=== PATIENT | female | born 1985 | race Caucasian/White ===

== ENCOUNTER → 2018-12-19 13:15 | Outpatient (CLI) | payer MEDICAID | END | disposition home or self-care (01) | LOC: D.LDO 13:15 | PROVIDERS: ATTEND Obstetrics & Gynecology | DX: O30.009 Twin pregnancy, unspecified number of placenta and unspecified number of amniotic sacs, unspecified trimester (principal); Z3A.00 Weeks of gestation of pregnancy not specified ==

== ENCOUNTER → 2018-12-25 12:40 | Outpatient (CLI) | payer MEDICAID | END | disposition home or self-care (01) | LOC: D.LDO 12:40 | PROVIDERS: ATTEND Obstetrics & Gynecology | DX: O30.93 Multiple gestation, unspecified, third trimester (principal); Z3A.31 31 weeks gestation of pregnancy ==

== ENCOUNTER → 2018-12-28 18:30 | Outpatient (CLI) | payer MEDICAID | END | disposition home or self-care (01) | LOC: D.LDO 18:30 | PROVIDERS: ATTEND Obstetrics & Gynecology | DX: O30.90 Multiple gestation, unspecified, unspecified trimester (principal) ==

== ENCOUNTER → 2019-01-03 12:36 | Outpatient (CLI) | payer MEDICAID | END | disposition home or self-care (01) | LOC: D.LDO 12:36 | PROVIDERS: ATTEND Obstetrics & Gynecology | DX: O30.90 Multiple gestation, unspecified, unspecified trimester (principal) ==

== ENCOUNTER → 2019-01-08 15:55 | Outpatient (CLI) | payer MEDICAID ==
[~2019-01-08 15:55] MED LIST: AMBIEN10 MG PO; CYCLOBENZAPRINE10 MG PO; HYDROCODON-ACE1 EA10 PO; MOTRIN600 MG PO; PRENATAL; PROTONIX40 MG PO; ZOFRAN ODT4 MG/UDTAB
[2019-01-26 09:47] VITALS: BMI 31.3
== END ==
LOC: D.LDO 15:55
PROVIDERS: ATTEND Obstetrics & Gynecology
DX: O30.93 Multiple gestation, unspecified, third trimester (principal); Z3A.33 33 weeks gestation of pregnancy

== ENCOUNTER → 2019-01-11 12:45 | Outpatient (CLI) | payer MEDICAID ==
[2019-01-26 09:47] VITALS: BMI 31.3
== END | disposition home or self-care (01) ==
LOC: D.LDO 12:45
PROVIDERS: ATTEND Obstetrics & Gynecology
DX: O30.90 Multiple gestation, unspecified, unspecified trimester (principal)

== ENCOUNTER → 2019-01-16 14:34 | Outpatient (CLI) | payer MEDICAID ==
[2019-01-26 09:47] VITALS: BMI 31.3
== END | disposition home or self-care (01) ==
LOC: D.LDO 14:34
PROVIDERS: ATTEND Obstetrics & Gynecology
DX: O30.93 Multiple gestation, unspecified, third trimester (principal); Z3A.34 34 weeks gestation of pregnancy

== ENCOUNTER → 2019-01-17 18:27 | Outpatient (CLI) | payer MEDICAID ==
[2019-01-26 09:47] VITALS: BMI 31.3
== END | disposition home or self-care (01) ==
LOC: D.LDO 18:27
PROVIDERS: ATTEND Student in an Organized Health Care Education/Training Program
DX: O30.93 Multiple gestation, unspecified, third trimester (principal); Z3A.34 34 weeks gestation of pregnancy

== ENCOUNTER → 2019-01-22 12:06 | Outpatient (CLI) | payer MEDICAID ==
[2019-01-26 09:47] VITALS: BMI 31.3
== END | disposition home or self-care (01) ==
LOC: D.LDO 12:06
PROVIDERS: ATTEND Obstetrics & Gynecology
DX: O30.93 Multiple gestation, unspecified, third trimester (principal); Z3A.35 35 weeks gestation of pregnancy

== ENCOUNTER 2019-01-25 11:35 | Outpatient (CLI) | payer MEDICAID ==
[2019-01-25] MEDS ORDERED: CYCLOBENZAPRINE10 MG PO (21:28)
[2019-01-25] MEDS ORDERED: AMBIEN10 MG PO (21:28)
[2019-01-25] MEDS ORDERED: PROTONIX40 MG PO (21:29)
[2019-01-25] MEDS ORDERED: ZOFRAN ODT4 MG/UDTAB (21:30)
[2019-01-25] MEDS ORDERED: PRENATAL (21:31)
[2019-01-26 09:47] VITALS: BMI 31.3
== END 2019-01-25 13:18 ==
LOC: D.LDO 11:35
PROVIDERS: ATTEND Obstetrics & Gynecology
DX: O30.90 Multiple gestation, unspecified, unspecified trimester (principal)

== ENCOUNTER → 2019-01-25 21:04 | Outpatient (CLI) | payer MEDICAID ==
[2019-01-26 09:47] VITALS: BMI 31.3
== END | disposition home or self-care (01) ==
LOC: D.LDO 21:04
PROVIDERS: ATTEND Obstetrics & Gynecology
DX: O47.9 False labor, unspecified (principal)

== ENCOUNTER 2019-01-26 08:50 | Inpatient (IN) | payer MEDICAID ==
[2019-01-26] VITALS (12 sets, daily range): BP systolic 97–118; BP diastolic 56–77; Ht 175.3 cm; Wt 96.4 kg
[~2019-01-26] VITALS: Ht 175.3 cm; Wt 96.4 kg
--- NOTE | ~2019-01-26 | DS ---
PATIENT:YULIANA QUIGLEY :87 MEDICAL RECORD: [id number] DISCHARGE SUMMARY ADMISSION DATE: 01/26/19 DISCHARGE DATE: 01/28/19 The patient was admitted on 01/26/2019. HISTORY: A 34-year-old , at 36 weeks and 1 day, admitted for twin gestation with contractions q.1-3 minute, admitted at that time for and tubal ligation. PAST MEDICAL HISTORY: Significant for anxiety and acid reflux. SURGICAL HISTORY: Significant for hernia in 2007, breast augmentation. ALLERGIES: The patient reported no known allergies. MEDICATIONS: Include Ambien, Flexeril, Protonix, and Zofran as well as vitamins. FAMILY HISTORY: The patient reported a family history significant for parents with hypertension. SOCIAL HISTORY: The patient reported being a former tobacco use. PHYSICAL EXAMINATION: VITAL SIGNS: On initial assessment, vital signs were afebrile and normotensive. LUNGS: Clear to auscultation. CARDIOVASCULAR: Regular rate and rhythm. PELVIC: Uterus was appropriately sized and nontender. EXTREMITIES: Lower extremities are free of Homans sign, erythema, or swelling. wellbeing was reassuring times 2 with a heart rate in the 150s, variable, moderate, noted to be having regular contractions. LABORATORY DATA: Admit hemoglobin was 12.3. ASSESSMENT AND PLAN: At that time; 1. Intrauterine at 36 weeks and 1 day. 2. Dichorionic diamniotic twin gestation. 3. Labor. 4. Anxiety. Plan at that time for and tubal ligation. Risks and benefits were explained. The patient voiced understanding and consent. Category 1 tracing times 2 was noted. Operative report is as dictated. The patient did well overnight on postop day #0, tolerating Dilaudid TOUR AGENT and Toradol for pain, IV fluids, clear liquid diet. Gonzales catheter in place and urine output was found to be adequate. Lower extremities are free of erythema, swelling and SCDs were on and functioning normally. On morning of postop day #1, the patient continued to do well. Vital signs are stable. The patient was afebrile and normotensive. Incision was clean, dry and intact. Hemoglobin was found to be stable. At that time, the patient was advanced to general diet and p.o. pain meds. Gonzales catheter was discontinued and ambulation begun. The patient continued to improve on postop day #1. On the morning of postop day #2, the patient continued to do well. Vital signs are stable. The patient was afebrile and DISCHARGE SUMMARY REPORT [id number] YULIANA QUIGLEY normotensive. Incision clean, dry and intact. The patient reported minimal lochia. Uterus was appropriately sized and appropriately tender. The patient was discharged home on postop day #2 with instructions to follow up the next week for a wound check. TRANSINT:[id number] Voice Confirmation ID: [id number] DOCUMENT ID: [id number] BONNY RUVALCABA MD CC: [id number] DICTATION DATE: 03/16/192115 BOX SEALING MACHINE OPERATOR: 03/17/19 111 DIS IN 01/28/19 [id number] [place] [address]
[~2019-01-26 08:50] MED LIST changes: -HYDROCODON-ACE1 EA10 PO; -MOTRIN600 MG PO
[2019-01-26 09:53] LABS: HEMATOCRIT 37.9 % (36.0-48.0); HEMOGLOBIN 12.3 g/dL (12-16); MCH 26.9 pg (26.0-34.0); MCHC 32.5 g/dL (31.0-37.0); MCV 82.8 fL (80.0-100.0); MEAN PLATELET VOLUME 10.6 fL (7.4-10.4); RBC 4.58 10x6/uL (4.00-5.40); RDW 13.3 % (11.5-14.5); WBC 9.5 10x3/uL (4.8-10.8)
--- NOTE | 2019-01-26 12:17 | NUR ---
RECEIVED PT FROM RECOVERY ROOM VIA BED. ALERT AND ORIENTED. IV NS 20 UNITS PITOCIN PLACED ON ALARIS PUMP AT 125 ML/HR. VS OBTAINED, U/2 FIRM MIDLINE, LTCS INCISION DRESSING CLEAN DRY AND INTACT. CASTELLON DRAINING CLEAR YELLOW URINE AND ATTACHED TO INNER RIGHT THIGH. UNABLE TO MOVE LE. DENIES PAIN. SCD'S PLACED ON PUMP AND WORKING BILATERALLY. ROBERT PENN[place], MOD ON PAD, CHANGED AND PLACE TWO CLEAN ANGELITA-PADS. POSITIONED FOR COMFORT IN LOW FOWLERS POSITION. INSTRUCTED ON INCENTIVE SPIROMETER WHICH WAS USED X 3 FOLLOW BY STRONG, NON PRODUCTIVE COUGH. WATER AND CLEAR LIQUID DIET AT BEDSIDE. VISITORS WAITING TO SEE PT AND INFANTS READY TO COME TO ROOM. SIDERAILS UP X 2, CALL LIGHT IN REACH.
--- NOTE | 2019-01-26 12:45 | NUR ---
U/2 FIRM MIDLINE, RUBRA SMALL TO MOD, CLEAN ANGLEITA-PAD X 1 TO REPLACE SOILED ANGELITA-PAD. INFANT, VISITORS IN ROOM. UNABLE TO MOVE LE, DENIES PAIN. TO CALL IF ANYTHING IS NEEDED.
--- NOTE | 2019-01-26 13:00 | NUR ---
SITTING UP IN BED HOLDING . VISITORS IN ROOM. U/2 FIRM RUBRA SMALL. NO REQUESTS, NO PAIN, STILL UNABLE TO MOVE LE. CASTELLON DRAINING ADEQUATE CLEAR YELLOW URINE, IV PATENT. SIDERAILS X 2 REMAIN UP. CALL LIGHT IN REACH.
--- NOTE | 2019-01-26 13:15 | NUR ---
U/2 FIRM MIDLINE, RUBRA SMALL TO MOD, CLEAN PERIPADS X 2 PLACED. DENIES PAIN, MOVING LE SLIGHTLY. INFANT IN ARMS AND VISITORS IN ROOM. TO CALL IF ANYTHING IS NEEDED.
--- NOTE | 2019-01-26 13:30 | NUR ---
U/2 FIRM RUBRA SMALL TO MOD. MOVING LE BENDING AT KNEES, SAYS SHE IS STARTING TO FEEL PULLING PAIN. WILL START MEDICAL EDUCATION SPECIALIST, REPOSITION.
--- NOTE | 2019-01-26 13:45 | NUR ---
DILAUDID CERAMIC COATER INITIATED. INSTRUCTED PATIENT ON USE AND THAT SHE IS ONLY ONE TO PUSH CERAMIC COATER CONTROLLER. VERBALIZED UNDERSTANDING. 6/10 INCISIONAL PULLING. INCENTIVE SPIROMETER USED X 3 FOLLOWED BY WEAK COUGH "IT HURTS THIS TIME". ENCOURAGED TO SPLINT ABDOMEN. ICE PACK WAS PLACED UPON RETURNING FROM RR OVER INCISIONAL SITE (OVER GOWN) ICE PACK REMAINS IN PLACE. CLEAN CHUX AND PADS ON, POSITIONED TO RIGHT SIDE WITH PILLOWS. INFANTS IN ROOM. FOB PRESENT. SIDE RAILS UP X 2, CALL LIGHT IN REACH.
--- NOTE | 2019-01-26 14:50 | NUR ---
STILL FEELING PAIN. 09/17. TORADOL 30 MG GIVEN IVP FOR RELIEF. ENCOURAGED TO TRY TO NAP AT THIS TIME. INFANTS IN NURSERY, FOB IN ROOM, VISITORS GONE. I&0, VS COMPLETED. SIDE RAILS UP X 2, CALL LIGHT PLACED IN REACH.
--- NOTE | 2019-01-26 16:10 | NUR ---
SITTING UP BED . HAS NOT RESTED SAYS HER PAIN IS 5/10 STINGING, SAYS SHE HAS BEEN PUSHING DENTIST PRIVATE PRACTICE CONTROLLER, CHECKED VOLUME INFUSED WHICH IS 0. AT I&0 CHECK IT WAS 1 AND PUMP WAS CLEARED. CHECKED ALL CONNECTIONS, RESET PUMP, 0.4 MG BOLUS GIVEN AT THIS TIME AFTER CONFIRMATION OF ORDERS WITH Mary GONZALES RN AND CONFIRMATION OF BOLUS DOSE GIVEN. WILL STAY AT BEDSIDE TO ENSURE DENTIST PRIVATE PRACTICE CONTROLLER WORKING SECOND TIME. SIDE RAILS UP X 2, CALL LIGHT IN REACH, FRESH ICE PACK GIVEN. REMINDED NOT TO FALL ASLEEP WITH IN ARMS.
--- NOTE | 2019-01-26 16:20 | NUR ---
VALET CASHIER CONTROLLER LIGHT CAME ON, PT PUSHED VALET CASHIER CONTROLLER. WILL CONTINUE TO MONITOR PAIN MANAGEMENT. NEXT BOLUS CAN BE GIVEN AT 1910. U/2 FIRM MIDLINE, RUBRA SMALL, CLEAN ANGELITA-PAD PLACED. INCENTIVE SPIROMETER USED X 3 WITH NON PRODUCTIVE COUGH. TO CALL IF ANYTHING IS NEEDED, CLEAR LIQUID DIET AT BEDSIDE. FRESH ICE WATER GIVEN.
--- NOTE | 2019-01-26 16:51 | NUR ---
DRINKING ICE TEA AND EATING JELLO, "THIS TASTES SO GOOD". SAYS SHE IS STILL HURTING BUT PUSHING PRISON GUARD CONTROLLER WHEN LIGHT GOES GREEN. EXPLAINED TO PT SHE SHOULD GET SOME RELIEF ALTHOUGH PAIN MAY NOT GO AWAY 100%. VERBALIZED UNDERSTANDING. WILL REASSESS AT 1700. SIDE RAILS UP X 2, CALL LIGHT IN REACH. NO ACUTE DISTRESS NOTED.
--- NOTE | 2019-01-26 17:24 | NUR ---
SITTING UP IN BED HOLDING . SAYS SHE IS FEELING A LOT BETTER NOW AND PUSHING SENIOR REGULATORY AFFAIRS SPECIALIST CONTROLLER REGULARLY. PAIN IS NO -05/20. VISITORS IN ROOM. NO REQUESTS. SIDE RAILS UP X 2, CALL LIGHT IN REACH. TO CALL IF ANYTHING IS NEEDED.
--- NOTE | 2019-01-26 17:39 | NUR ---
PT DESIRED TO USE HER OWN FLONASE WHICH SHE HAS AT BEDSIDE. USES NEEDED FOR ALLERGIES. DR RUVALCABA CONTACTED AND ORDERS RECEIVED THAT SHE MAY USE HER OWN MEDICATION.
[2019-01-26 18:27] LABS: BASOPHILS 0.2 % (0-2); EOSINOPHILS 0.5 % (0-7); HEMATOCRIT 32.9 % (36.0-48.0); HEMOGLOBIN 10.5 g/dL (12-16); IMMATURE GRANULOCYTES 0.9 % (0-5); LYMPHOCYTES 10.6 % (15-50); MCH 26.3 pg (26.0-34.0); MCHC 31.9 g/dL (31.0-37.0); MCV 82.3 fL (80.0-100.0); MEAN PLATELET VOLUME 10.3 fL (7.4-10.4); NEUTROPHILS 79.8 % (40-80); PLATELET COUNT 160 10x3/uL (130-400); RDW 12.9 % (11.5-14.5)
[2019-01-26 18:34] LABS: WBC 13.3 10x3/uL (4.8-10.8)
--- NOTE | 2019-01-26 18:38 | NUR ---
INFANTS TO NURSERY PER Mary GONZALES RN NURSERY REQUESTS. DR RUVALCABA IN ROOM TALKING TO PATIENT. PT DESIRES TO EAT. NEW ORDERS RECEIVED. CBC RESULTS GIVEN TO .
--- NOTE | 2019-01-26 19:00 | NUR ---
PT. AWAKE AND ORIENTED. SKIN WARM AND DRY. BREATH SOUNDS CLEAR AND BOWEL SOUNDS ACTIVE. SCDS ON AND FUNCTIONAL. IV OF NS WITH 20 UNITS PITOCIN ADDED INFUSING IN LT HAND AT 125CC/HR. DILAUDID SHEEP AND WHEAT FARMER IN USE. PT. DEMONSTRATED USE OF INCENTIVE SPIROMETER UP TO 2500 X3. CASTELLON CATH. BAG EMPTIED FOR THE 4 HOUR I &O. PT. CHEERFUL AND RELATING THAT SHE HAD A "GREAT" EXPERIENCE. ENCOURAGED PT. TO COUGH AND DEEP BREATH AND PT. STATED UNDERSTANDING. INFORMED PT. THAT SHE MOVED TO MOVE FROM SIDE TO SIDE. PT. STATES THAT SHE WAS AT A TILT X1 AND IT WAS NOT COMFORTABLE. ENCOURAGED PT. TO CHANGE TO LT SIDE AND TURN ALL THE WAY OVER ON SIDE AND NOT JUST AT TILT. PT. ABLE TO TURN WITHOUT ASSISTANCE AND SUPPORTED WITH PILLOWS. ANGELITA PAD CHANGED WITH LOCHIA NOTED SCANT. ICE CAP REFILLED AND APPLIED TO LOWER ABD. OVER ABD. DRESSING. VISITORS AT BEDSIDE.
--- NOTE | 2019-01-26 19:45 | NUR ---
INFANTS IN ROOM TO VISIT. VISITORS AT BEDSIDE.
--- NOTE | 2019-01-26 20:20 | NUR ---
PT. LYING ON BACK HOLDING . STATES THAT SHE WAS UNCOMFORTABLE ON HER SIDE. EXPLAINED TO PT. REASON FOR POSITION CHANGES AND ASKED PT. TO MOVE FROM SIDE TO SIDE AND STAY LONG SHE CAN TOLERATE BUT NOT TO STAY ON HER BACK ALL THE TIME. PT. AGREEABLE AND STATES UNDERSTANDING. FAMILY AT BEDSIDE.
--- NOTE | 2019-01-26 21:09 | NUR ---
PERICARE DONE AND PADS CHANGED. SMALL AMT RUBRA LOCHIA NOTED, NO CLOTS PRESENT. NEW BAG NS WITH 20 UNITS PIT HUNG TO CONTINUE TO INFUSE PER ORDER. SCD'S ON BLE. PAIN 2-3/10, PROGRAM SCHEDULER INFUSING, REPORTS THAT IT IS CONTROLLING PAIN WELL. DENIES ADDITIONAL NEEDS. BED IN LOW POSITION WITH UPPER SIDE RAILS RAISED X2. CALL LIGHT, PHONE, AND PROGRAM SCHEDULER BUTTON WITHIN REACH.
--- NOTE | 2019-01-26 21:26 | NUR ---
INFANTS IN ROOM. RATES PAIN A 3 OF 10 ON PAIN SCALE. TORADOL GIVEN ORDERED. PT. HOLDING ONE PRIOR TO ATTEMPTING TO BREAST FEED. IV CONTINUES AT 125CC/HR. SCDS ON AND FUNCTIONAL. CASTELLON PATENT AND DRAINING. AWAKE AND ORIENTED. SKIN WARM AND DRY.
--- NOTE | 2019-01-26 21:43 | NUR ---
PAIN 3-4/10 INCISIONAL BURNING AND STINGING. SORT WORKER BEEPING NEAR END. SYRINGE CHANGED. PT REPORTS THAT PAIN LEVEL IS ACCEPTABLE. IN HIGH FOWLERS POSITION HOLDING A AT THIS TIME. DENIES ADDITIONAL NEEDS. SIGNIFICANT OTHER RESTING ON COUCH AT BEDSIDE. BED IN LOW POSITION WITH UPPER SIDE RAILS RAISED X2. CALL LIGHT AND PHONE WITHIN REACH. SORT WORKER BUTTON WITHIN REACH.
--- NOTE | 2019-01-26 22:45 | NUR ---
LYING ON BACK WITH EYES CLOSED. RESPIRATIONS UNLABORED. FOB ASLEEP ON SOFA. BOTH INFANTS IN SAME OPEN CRIB SWADDLED AND WITH HATS. PT. SCDS ON AND FUNCTIONAL. IV OF NS WITH PITOCIN INFUSING AT 125CC/HR. LIGHTS IN ROOM DIMMED WHEN THIS NURSE ENTERED.
--- NOTE | 2019-01-26 23:19 | NUR ---
LYING ON RT. SIDE AND SUPPORTED WITH PILLOW. LYING IN BED WITH PT. OTHER LYING WITH FOB ON SOFA. PT. AWAKE BUT DROWSY. LOCHIA RUBRA SCANT. ABD. DRESSING DRY AND INTACT. ICE CAP REFILLED AND PLACED AGAINST ABD. DRESSING. VITAL SIGNS OBTAINED. SCDS ON AND FUNCTIONAL. SIDE RAILS UP X2 AND CALL LIGHT WITHIN REACH OF PT. GROUNDWATER MONITORING TECHNICIAN BUTTON WITHIN REACH OF PT. PT. STATES SHE IS COMFORTABLE AT THIS TIME. ICE WATER PROVIDED.
--- NOTE | 2019-01-27 01:05 | NUR ---
PT. CALLED AND THIS NURSE INTO ROOM. PT. STATES THAT SHE CAN NOT SLEEP AND WOULD LIKE A SLEEP AID. ASKED PT. IF SHE PLANNED TO BREASTFEED. STATES NOT ANYMORE TONIGHT. PT. REPORTS TAKING AMBIEN IN HOME FOR SLEEP. INFORMED WOULD NEED TO CALL MD FOR ORDER. REPORTS THAT SHE HAS BEEN PUSHING DILAUDID GARDEN EQUIPMENT MECHANIC FREQ. FOR SLEEP BUT IT HASN'T BEEN WORKING.
--- NOTE | 2019-01-27 01:14 | NUR ---
DR. RUVALCABA PAGED TO DISCUSS PT REQUEST FOR SLEEP AID.
--- NOTE | 2019-01-27 01:17 | NUR ---
CALLBACK TO UNIT REC'D FROM DR. RUVALCABA, REPORTED TO PT REQUEST FOR SLEEP AID. ORDERS REC'D.
--- NOTE | 2019-01-27 01:31 | NUR ---
10 MG PO AMBIEN GIVEN PER ORDER AND PT REQUEST. EDUCATED ON MED AND FALL PRECAUTIONS, VERBALIZES UNDERSTANDING AND DENIES QUESTIONS. Pilar CRAWFORD RN NOTIFIED OF MED BEING GIVEN. INFANTS IN NBN AT THIS TIME. BED IN LOW POSITION WITH SR UP X2. CALL LIGHT, BOOMBOAT OPERATOR BUTTON, AND PHONE WITHIN REACH. SIGNIFICANT OTHER RESTING ON COUCH.
--- NOTE | 2019-01-27 03:02 | NUR ---
RESTING QUIETLY WITH EYES CLOSED IN SEMI-FOWLERS POSITION. INFANTS REMAIN IN NBN. RESP REGULAR AND UNLABORED, NO S/S OF DISTRESS NOTED. SIGNIFICANT OTHER RESTING ON COUCH AT BEDSIDE. BED IN LOW POSITION WITH SRUPX2. CALL LIGHT, PRINTING WORKER SUPERVISOR BUTTON, AND PHONE WITHIN REACH.
--- NOTE | 2019-01-27 03:45 | NUR ---
INFANTS TAKEN TO PT BY Darrin KIMBROUGH RN FROM [facility].
[2019-01-27 04:02] VITALS: BP 115/77
--- NOTE | 2019-01-27 04:02 | NUR ---
PT. AWAKE AT PRESENT AND ALSO FOB . ANGELITA PAD CHECKED PER REQUEST OF PT. WITH MINIMAL LOCHIA NOTED. RATES PAIN A 3 OF 10 ON PAIN SCALE. CASTELLON CATH. TUBING MOVED AND 500CC FLOWED INTO METER. PT. STATES SHE CAN FEEL SOME RELIEF FROM BLADDER FULLNESS. ICE CAP REFILLED TO PLACE OVER ABD. DRESSING. PT. REQUESTED SCDS REMOVED AT THIS TIME. STATES "IT MAKES ME TENSE WHEN THEY INFLATE."SCDS REMOVED. ICE WATER PROVIDED. PT. PREPARING TO BOTTLE FEED ONE INFANT AND FOB WILL FEED THE SECOND INFANT. VITAL SIGNS OBTAINED.
--- NOTE | 2019-01-27 04:30 | NUR ---
ASSISTED PT. AND FOB FEEDING INFANTS. BOTH ARE VERY RECEPTIVE AND APPRECIATIVE REGARDING ANY HELP OR SUGGESTIONS.
--- NOTE | 2019-01-27 05:45 | NUR ---
PT. ASLEEP BUT AWAKENED TO THIS NURSE IN ROOM. POC DISCUSSED WITH PT.. IV SALINE LOCKED. HVAC SPECIALIST COMPLETED AND OFF. NORCO GIVEN ORDERED FOR PAIN SCORE OF A 3 OF 10. PT. BACK TO SLEEP.
[2019-01-27 06:29] LABS: BASOPHILS 0.2 % (0-2); EOSINOPHILS 1.4 % (0-7); HEMOGLOBIN 10.5 g/dL (12-16); LYMPHOCYTES 10.7 % (15-50); MCH 26.3 pg (26.0-34.0); MCHC 31.8 g/dL (31.0-37.0); MCV 82.5 fL (80.0-100.0); MEAN PLATELET VOLUME 9.9 fL (7.4-10.4); NEUTROPHILS 78.7 % (40-80); PLATELET COUNT 149 10x3/uL (130-400); RDW 13.1 % (11.5-14.5); WBC 11.1 10x3/uL (4.8-10.8)
--- NOTE | 2019-01-27 08:00 | NUR ---
ASSUMED CARE OF THIS PT SITTING UP IN BED. VISITOR X 1 HOLDING . SECOND IN NURSERY. CASTELLON CATHETER DC'D WITHOUT DIFFICULY. DISCUSSED POC TO INCLUDE VOIDING, SHOWER, AMBULATION THIS AM. VERBALIZED UNDERSTANDING. DESIRES TO TRY TO GET SOME SLEEP NOW. SHIFT ASSESSMENT COMPLETED. FRESH WATER GIVEN, REGULAR DIET EATEN. NO REQUESTS. BED IN LOW POSITION, SIDE RAILS UP X 2, CALL LIGHT IN REACH. TO CALL IF ANYTHING IS NEEDED.
[2019-01-27 08:09] VITALS: BP 102/72
--- NOTE | 2019-01-27 09:39 | NUR ---
UP TO BATHROOM TO VOID. VOIDED 800 ML URINE WITH LOCHIA IN URINE. WANTED TO TAKE SHOWER. COMPLETE LINEN CHANGE DONE. COMPLETED BOTH AT THIS TIME. CURRENT 10 PRESSURE. DESIRES TO AMBULATE. WILL GIVE PO MEDS IF DUE.
--- NOTE | 2019-01-27 09:54 | NUR ---
NORCO 10 MG GIVEN PO FOR RELIEF OF 4/10 INCISIONAL PAIN PRESSURE/CRAMPING. AMBULATING IN [place]. VISITOR IN ROOM WITH .
--- NOTE | 2019-01-27 11:03 | NUR ---
SITTING UP IN BED TALKING TO VISITORS. SAYS HER PAIN IS BETTER 2/10 INCISIONAL ACHING. DENIES NEEDING ANYTHING. TO CALL IF ANYTHING IS NEEDED.
--- NOTE | 2019-01-27 12:19 | NUR ---
PT CALLS OUT EXPEDITION SUPERVISOR LIGHT FOR PAIN MED AND TO NOTIFY RN THAT SHE VOIDED. THIS RN TO ROOM. PT RATING PAIN 5/10 AT THIS TIME, STATES IT IS "ABOUT A 2 IF I'M STILL THOUGH." PT STATES PAIN WITH AMBULATION IS "ABOUT A 5." PT ADMIN PRN MOTRIN ORDERED, SEE EMAR FOR DOC. GREATER THAN 1000ML CLEAR YELLOW URINE EMPTIED FROM URINE CONTAINER IN BR. PT STATES "IT OVERFLOWED" SHE WAS VOIDING. PT INSTRUCTED ON EMPTYING BLADDER FREQUENTLY TO DECREASE LOCHIA AND CRAMPING. UNDERSTANDING VERBALIZED. SRUx2, CL IN REACH. WILL CONT TO MONITOR. PT VISITING WITH FAMILY AT THIS TIME.
[2019-01-27 13:30] VITALS: BP 109/69
--- NOTE | 2019-01-27 13:30 | NUR ---
SITTING UP IN BED TALKING TO VISITORS X 2. INFANTS IN ROOM. JUST RETURNED FROM BATHROOM. VOIDING WITHOUT DIFFICULY. 4/10 ABD CRAMPING. U/1 FIRM MIDLINE. ASKED ABOUT SOMETHING FOR SLEEP. INSTRUCTED SHE HAS AMBIEN ORDERED NEEDED FOR BEDTIME. VERBALIZED UNDERSTANDING. INCENTIVE SPIROMETER USED X 3 WITH GOOD NON-PRODUCTIVE COUGH. DENIES NEEDING ANYTHING ELSE AT THIS TIME. TO USE INCENTIVE SPIROMETER HOURLY, UP AD MEHUL. SIDE RAILS UP X 2, CALL LIGHT IN REACH.
--- NOTE | 2019-01-27 15:34 | NUR ---
AMBULATING IN [place]. ASKED HOW TO GET RID OF GAS. DISCUSSED RELIEF OPTIONS. ALSO REQUESTED PAIN MEDICATION FOR 6/10 "PULLING" PAIN. NORCO 10 MG GIVEN PO FOR RELIEF. ADITI SMALL, VOIDED 800 ML URINE. RETURNED TO ROOM. NO ADDITONAL REQUEST. VISITOR AND INFANTS X 2 IN ROOM.
--- NOTE | 2019-01-27 16:52 | NUR ---
MYLICON 80 MG GIVEN PO FOR RELIEF OF GAS. SITTING UP IN BED BOTTLEFEEDING INFANT. REGULAR DIET AT BEDSIDE. NO REQUESTS. SIDE RAILS UP X2, CALL LIGHT IN REACH. VISITOR X 1 IN ROOM HOLDING SECOND INFANT.
[2019-01-27 16:57] VITALS: BP 107/69
--- NOTE | 2019-01-27 17:50 | NUR ---
SITTING UP IN BED HOLDING . ASKED ABOUT REMOVAL OF SALINE LOCK. TAPE IS COMING LOSE AND SCANT AMOUNT OF BLOOD NOTED AT SITE. SALINE LOCK DC'D WITH TIP INTACT. AWARE THAT IS MAY HAVE TO BE RESTARTED IF NEEDED. VERBALIZED UNDERSTANDING. SAYS HER GAS PAIN IS BETTER. INCISIONAL PAIN/CRAMPING 07/18. ASKED FOR JELLO. FRESH WATER GIVEN. SIDE RAILS UP X 2, CALL LIGHT IN REACH. UP AD MEHUL TO AMBULATE AND TO BATHROOM.
[2019-01-27 20:24] VITALS: BP 137/84
--- NOTE | 2019-01-27 20:24 | NUR ---
PT REC'D UP IN ROOM AT THIS TIME. STATES PAIN IS A 6. LUNGS CLEAR. BS+. PT STATES THAT SHE IS NOT PASSING GAS VERY WELL. TAISHA INTACT. NO S/S OF INFECTION NOTED. FUNDUS FIRM WITH SMALL AMOUNT OF LOCHIA NOTED. NO ACUTE DISTRESS NOTED. Fabián FERGUSON RN
--- NOTE | 2019-01-27 20:33 | NUR ---
PT MEDICATED WITH MOTRIN AND NORCO FOR PAIN LEVEL OF 6. WILL CONTINUE TO MONITOR. Fabián FERGUSON RN
--- NOTE | 2019-01-27 21:06 | NUR ---
SIMETHICONE GIVEN FOR GAS. Fabián FERGUSON, RN
--- NOTE | 2019-01-28 00:42 | NUR ---
REPORT TO Judy HERNÁNDEZ RN
--- NOTE | 2019-01-28 03:05 | NUR ---
SLEEPING IN BED WITH SIGNIFICANT OTHER. RESPIRATIONS EVEN AND UNLABORED.
--- NOTE | 2019-01-28 04:00 | NUR ---
MOVED TO [facility]. ASSISTED WITH BELONGINGS. PATIENT DENIES NEEDS AT THIS TIME.
--- NOTE | 2019-01-28 04:20 | NUR ---
PATIENT COMPLAINING OF PAIN 08/17. MOTRIN AND NORCO GIVEN PER JUN.
--- NOTE | 2019-01-28 04:30 | NUR ---
PATIENT ASKED IF THERE WAS ANY MEDICATION LEFT IN OTHER ROOM. EXPLAINED THAT THE ROOM HAS NOT BEEN CLEANED YET NURSE CAN CHECK. PATIENT STATED HER BOYFRIEND BROUGHT HER A FEW XANAX FROM HER PRESCRIPTION AT HOME AND THEY WERE IN A PAPERTOWEL BY THE SINK. NURSE SEARCHED ROOM 1276 2 PAPER TOWELS FOUND BY THE SINK WITH NOTHING IN THEM. REPORTED TO PATIENT PILLS WERE NOT FOUND. PATIENT STATED BOYFRIEND MUST HAVE THEM.
--- NOTE | 2019-01-28 05:55 | NUR ---
BABY B IN MOM'S ARMS SLEEPING. MOM STATED SH ONLY ATE 20MLS. BABY A IN DADS ARMS AWAKE AND ALERT. MOM REQUESTED MORE ICE IN HER WATER. ICE WATER GIVEN. DENIES FURTHER NEEDS.
--- NOTE | 2019-01-28 07:00 | NUR ---
DR RUVALCABA VISITS WITH PT.
--- NOTE | 2019-01-28 08:30 | NUR ---
Pt sitting up in bed holding . Pt AAOx3 with complaint of pain 5/10 when standing. [place] given at this time. Pt with no other complaints at this time. Pt vital signs stable at this time.
--- NOTE | 2019-01-28 09:30 | NUR ---
PT SITTING UP IN BED. STATES PAIN MED RELIEVING PAIN. DENIES NEEDS OR C/O
--- NOTE | 2019-01-28 09:54 | NUR ---
Tena Castillo 01/[birth year] S: Patient states she hasn't breastfeed infants while in the hospital yet due to pain with her incision. She isn't able to find a comfortable position. States she plans on when she is home and will pump. She has a double electric medela pump and will pump when she gets home. Patient asked if I can show her how to hold infants for feedings. Verbally agrees to work on pumping at home and latching . O: Patient standing up in room changing . FOB just walked in room with infants car seats. Asked what questions about do you have? How can I help with ? Explained normal feeding patterns for a breastfed , breastmilk composition, supply and demand, benefits of skin to skin, positions, and how to verify is latched correctly. Both were placed in patient arms and showed how to hold for . Plan created for pumping/ attempting to latch infant when she is home. [facility] will follow up this afternoon and during the week. Asked if any questions about ? Please let nursery staff know if any questions or concerns. does take time, practice, and patience. A: Patient hasn't breastfeed during hospital visit due to pain from . Plans on pumping/latching infant when home. P: Please address all question or concerns about feeding infants to nursery staff. Catrina Busby, JOSE
[2019-01-28 09:59] VITALS: BP 111/72
--- NOTE | 2019-01-28 10:45 | NUR ---
PT AMBULATORY IN HALLS AT THIS TIME. DENIES C/O OR NEEDS.
[2019-01-28] MEDS ORDERED: MOTRIN600 MG PO (11:36)
[2019-01-28] MEDS ORDERED: HYDROCODON-ACE1 EA10 PO (11:36)
--- NOTE | 2019-01-28 12:35 | NUR ---
DISCHARGE INSTRUCTIONS GIVEN TO PT. PT VERBALIZES UNDERSTANDING OF ALL INSTRUCTIONS. COPIES GIVEN TO PT. PT GIVEN RX FOR NORCO AND MOTRIN. PT AWAITS 'S DISCHARGE.
--- NOTE | 2019-01-28 13:30 | NUR ---
PT AMBULATORY IN ROOM. PREPARING FOR DISCHARGE. DENIES NEEDS OR C/O.
--- NOTE | 2019-01-28 14:53 | NUR ---
Pt discharged home at this time via wheelchair per aux. staff with infants accompanied by spouse. Pt in stable condition at this time.
[2019-01-29 07:13] LABS: RAPID PLASMA REAGIN Non Reactive (Non Reactive)
--- NOTE | 2019-02-04 14:22 | OP ---
PATIENT NAME: YULIANA QUIGLEY MEDICAL RECORD: [id number] :87 LOCATION:[facility]1223 ADMISSION DATE:01/26/19 SURGEON: NASIM BARRY MD DATE OF OPERATION: 01/26/2019 PREOPERATIVE DIAGNOSES: 1. Twin gestation at 36 weeks. 2. Labor. POSTOPERATIVE DIAGNOSES: 1. Twin gestation at 36 weeks. 2. Labor. PROCEDURE: Primary low transverse section and a bilateral distal salpingectomy. SURGEON: Nasim Barry MD ESTIMATED BLOOD LOSS: 1000 cc. ANESTHESIA: Regional via spinal. INTRAVENOUS FLUIDS: Per anesthesia records. SPECIMENS: Included placenta times 2 and cord for gases times 2 as well as bilateral tubal segments. COMPLICATIONS: None apparent. FINDINGS: 1. Vertex-vertex, twin gestation. 2. Placenta delivered manually is intact times 2, 3-vessel cord times 2. 3. Normal adnexa bilaterally. PROCEDURE IN DETAIL: The patient was taken to the operating room where regional anesthesia was achieved without difficulty. The patient was then prepped and draped in normal sterile fashion in the dorsal supine position. SCDs were on and functioning normally and a Gonzales catheter had been placed and was draining freely. Following prepping, a Pfannenstiel skin incision was made, extended downward to the underlying subcutaneous fat to the level of the fascia. The fascia was then excised in the midline and extended bilaterally using the Garcia scissors. The superior and inferior aspect of the fascial incision were grasped with Alejandro clamps times 2, tented upward, and sharply dissected from the underlying rectus muscle using the Garcia scissors and the Bovie cautery. The rectus muscles were then bluntly in the midline and the peritoneum identified and entered sharply at the superior aspect of the incision using the Metzenbaum scissors. Peritoneal incision was then extended bilaterally and inferiorly using the Metzenbaum scissors. A bladder blade was placed into the pelvis. A bladder flap was created by excising the anterior leaf of the broad ligament across the lower uterine segment. This was further developed digitally and the bladder blade was then replaced over the bladder flap. At this point, a low transverse incision was made on the uterus and extended superiorly and inferiorly using the Pelosi method. The first bag was broken and the first infant was delivered vertex atraumatically. The straight clamps were placed on his cord and the infant was bulb suctioned immediately upon delivery, OPERATIVE REPORT [id number] YULIANA QUIGLEY the cord was clamped times 3. The cord was cut and the infant was handed to awaiting nursery team. Cord was then obtained for baby #1. The second amniotic sac was identified and ruptured with an Allis clamp and the second baby was also found to be vertex and was delivered atraumatically and was bulb suctioned immediately upon delivery. Cord was clamped times 2 with curved clamps, cut and the was handed to the awaiting nursery team. Cord was obtained for gases for both. Both placentas were then removed manually intact. Uterus was vigorously massaged. A good tone was noted. The uterus was cleared of all clots and debris. Uterus was repaired with 0 Vicryl in a running locked fashion times 2 with good hemostasis noted. Attention was then turned to the fallopian tubes, where a defect was made in the mid portion of the mesosalpinx. A curved Alyse clamp was placed across the inferior vessels and across the midportion of the fallopian tube using a Alyse clamp. This was performed bilaterally. The intervening distal tubal segment was then excised using the Metzenbaum scissors. The stumps were then free tied with 2-0 Vicryl and then suture ligated distally for hemostasis. Both salpingectomy sites were found to be hemostatic and the uterus was returned to the pelvis. Anterior cul-de-sac was then thoroughly irrigated and the uterine incision was found to be hemostatic. Counts were correct times 2 for needles, sponges, and instruments and the fascia was repaired with 0 loop PDS and skin repaired with elgin. The patient tolerated the procedure well, transferred to postanesthesia recovery stable without incident. 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
== END 2019-01-28 14:55 | disposition home or self-care (01) | DRG 785 ==
LOC: D.LDO 08:50 → D.WS 09:11 → D.LD 09:11 → D.WS 01-27 23:29
PROVIDERS: ADMIT Obstetrics & Gynecology; ATTEND Obstetrics & Gynecology
PROC: 0UB70ZZ Excision of Bilateral Fallopian Tubes, Open Approach (ICD-10-PCS; 2019-01-26)
PROC: 10D00Z1 Extraction of Products of Conception, Low, Open Approach (ICD-10-PCS; principal; 2019-01-26 11:09)
DX: O30.043 Twin pregnancy, dichorionic/diamniotic, third trimester (principal); Z3A.36 36 weeks gestation of pregnancy; Z37.2 Twins, both liveborn; O99.344 Other mental disorders complicating childbirth; F41.9 Anxiety disorder, unspecified; Z87.891 Personal history of nicotine dependence; Z30.2 Encounter for sterilization